=== PATIENT | male | born 1985 | race Caucasian/White ===

== ENCOUNTER 2018-08-03 16:59 | Emergency (ER) | payer SELFPAY ==
[~2018-08-03] VITALS: Ht 190.5 cm; Wt 101.2 kg
[2018-08-03 16:59] VITALS: BP 146/79
== END 2018-08-03 17:20 | disposition home or self-care (01) ==
LOC: ER 17:12
DX: S80.12XA Contusion of left lower leg, initial encounter (principal); W22.8XXA Striking against or struck by other objects, initial encounter; Y93.89 Activity, other specified; Y92.89 Other specified places as the place of occurrence of the external cause; Y99.8 Other external cause status
CPT/HCPCS: Z7502